=== PATIENT | male | born 1980 | race Caucasian/White ===

== ENCOUNTER 2019-03-07 22:40 | Inpatient (IN) | payer MEDICARE, OTHER ==
[2019-03-08] MEDS ORDERED: HEPARIN SODIUM,PORCINE 5,000 UNIT/ML 1 ML VIAL IV PRN (02:50)
[2019-03-08] MEDS ORDERED: HEPARIN SODIUM,PORCINE 10,000 UNIT/ML 1 ML VIAL IV ONE (02:50)
[2019-03-08] MEDS ORDERED: HEPARIN SODIUM,PORCINE 5,000 UNIT/ML 1 ML VIAL IV STA ×2 (02:50→11:10)
[2019-03-08 06:52] VITALS: RESP 20
[2019-03-08 07:46] LABS: Anisocytosis Slight; Basophils # (A) 0.1 k/uL (0-0.2); Basophils % (A) 1 %; Eosinophils # (A) 0.2 k/uL (0-0.7); Eosinophils % (A) 2 %; HCT 29.1 % (39.0-53.0); HGB 8.3 gm/dL (13.0-17.5); Hypochromasia Marked; Lymphocytes # (A) 1.2 k/uL (1.0-4.8); Lymphocytes % (A) 10 %; MCH 18.8 pg (25.0-35.0); MCHC 28.3 g/dL (31.0-37.0); MCV 66.4 fL (80.0-100.0); Mean Platelet Volume 6.2; Microcytosis Marked; Monocytes # (A) 0.6 k/uL (0-1.0); Monocytes % (A) 6 %; Neutrophils # (A) 9.2 k/uL (1.3-7.7); Neutrophils % (A) 80 %; Platelet Count 722 k/uL (150-450); RBC 4.39 m/uL (4.30-5.90); RDW 17.9 % (11.5-15.5); WBC 11.5 k/uL (3.8-10.6)
[2019-03-08 07:48] LABS: Anisocytosis Slight; Basophils % (A) 0 %; Eosinophils # (A) 0.2 k/uL (0-0.7); Eosinophils % (A) 2 %; HCT 24.4 % (39.0-53.0); HGB 7.1 gm/dL (13.0-17.5); Hypochromasia Marked; Lymphocytes # (A) 1.1 k/uL (1.0-4.8); Lymphocytes % (A) 12 %; MCH 19.9 pg (25.0-35.0); MCHC 28.9 g/dL (31.0-37.0); MCV 68.9 fL (80.0-100.0); Mean Platelet Volume 6.6; Microcytosis Marked; Monocytes # (A) 0.6 k/uL (0-1.0); Monocytes % (A) 6 %; Neutrophils # (A) 7.1 k/uL (1.3-7.7); Neutrophils % (A) 77 %; Platelet Count 614 k/uL (150-450); Poikilocytosis Slight; RBC 3.55 m/uL (4.30-5.90); RDW 17.3 % (11.5-15.5); WBC 9.2 k/uL (3.8-10.6)
[2019-03-08 07:55] LABS: ALT 15 U/L (21-72); AST 23 U/L (17-59); Albumin 2.9 g/dL (3.5-5.0); Alkaline Phosphatase 288 U/L (38-126); Anion Gap 7 mmol/L; Blood Urea Nitrogen 12 mg/dL (9-20); Calcium 8.8 mg/dL (8.4-10.2); Carbon Dioxide 27 mmol/L (22-30); Chloride 99 mmol/L (98-107); Glucose 107 mg/dL (74-99); Potassium 4.4 mmol/L (3.5-5.1); Sodium 133 mmol/L (137-145); Total Bilirubin 0.3 mg/dL (0.2-1.3); Total Protein 7.3 g/dL (6.3-8.2)
[2019-03-08 07:55] LABS: INR 1.2 (<1.2); Partial Thromboplastin Time 28.4 sec (22.0-30.0); Prothrombin Time 12.1 sec (9.0-12.0)
[2019-03-08 08:01] LABS: INR 1.1 (<1.2); Partial Thromboplastin Time 28.4 sec (22.0-30.0); Prothrombin Time 11.8 sec (9.0-12.0)
[2019-03-08] MEDS: HEPARIN SOD,PORK IN 0.45% NACL 25,000 UNIT in 0.45% NACL 1 250ML.BAG IV SCH ×2 (08:07→11:05)
[2019-03-08 09:24] VITALS: BMI 23.8
[2019-03-08] MEDS: HYDROcodone/APAP 10-325MG 1 EACH TAB PO SCH ×2 (10:05→15:55)
--- NOTE | 2019-03-08 12:17 | US ---
EXAM: US Duplex Right Lower Extremity Veins CLINICAL HISTORY: Right leg swelling x 1 week. TECHNIQUE: Real-time duplex ultrasound scan of the right lower extremity veins integrating B-mode two-dimensional vascular structure, Doppler spectral analysis, color flow Doppler imaging and compression. COMPARISON: None FINDINGS: Deep veins: Occlusive thrombus in the right common femoral vein and femoral vein. Superficial veins: Unremarkable. No thrombus in the visualized great saphenous vein. Soft tissues: Soft tissue edema. No popliteal cyst. IMPRESSION: Occlusive thrombus in the right common femoral vein and femoral vein. <MYCVCSECTION> Critical Value Communications 03/08/19 01:31 Call Doctor Regarding Acute DVT, called DARLIN Arias on 03/08 01:30 (-04:00)
--- NOTE | 2019-03-08 12:17 | CT ---
EXAM: CT Angiography Chest With Intravenous Contrast CLINICAL HISTORY: Patient presents with SOB. Rule out PE. 75mL of isovue 370 given through IV. DLP 327 TECHNIQUE: Axial computed tomographic angiography images of the chest with intravenous contrast using pulmonary embolism protocol. CTDI is 7 mGy and DLP is 327 mGy-cm. This CT exam was performed using one or more of the following dose reduction techniques: automated exposure control, adjustment of the mA and/or kV according to patient size, and/or use of iterative reconstruction technique. MIP reconstructed images were created and reviewed. COMPARISON: No relevant prior studies available. FINDINGS: Pulmonary arteries: No filling defects. Aorta: No thoracic aortic aneurysm. Lungs: No mass. No consolidation. Pleural space: No significant effusion. No pneumothorax. Heart: No cardiomegaly or pericardial effusion. Bones/joints: No acute fracture or dislocation. Soft tissues: Mildly enlarged thyroid glands. Lymph nodes: No enlarged lymph nodes. IMPRESSION: No acute intrathoracic findings. No pulmonary embolism. Mildly enlarged thyroid glands with no definite nodules.
[2019-03-08 12:24] VITALS: BP 100/50; PULSE 74; TEMP 97.1
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
--- NOTE | 2019-03-08 14:15 | P.DS ---
Providers Date of admission: 03/08/19 03:20 Attending physician: Juan Cortes Primary care physician: Wood Schultz Hospital Course: As mentioned in HPI Plan - Discharge Summary Discharge Rx Participant: No New Discharge Prescriptions: New Apixaban [Eliquis Starter Pack (for VTE)] 5 mg PO DIRECTED 30 Days #1 pack No Action HYDROcodone/APAP 10-325MG [[place] 10-325] 1 tab PO Q6H Discharge Medication List Apixaban [Eliquis Starter Pack (for VTE)] 5 mg PO DIRECTED 30 Days #1 pack 03/08/19 [Rx] HYDROcodone/APAP 10-325MG [[place] 10-325] 1 tab PO Q6H 03/08/19 [History] Follow up Appointment(s)/Referral(s): Wood Schultz MD [Primary Care Provider] - 1 Week [facility] Visiting Nurse, [NON-STAFF] - 1-2 Days Discharge Disposition: HOME SELF-CARE
== END 2019-03-08 17:00 | disposition home health service (06) | DRG 299 ==
LOC: EC 22:40 → 3NMEDONC 03-08 03:20
PROVIDERS: ADMIT Hospitalist; ATTEND Hospitalist
DX: I82.411 Acute embolism and thrombosis of right femoral vein (principal); L89.104 Pressure ulcer of unspecified part of back, stage 4; L89.624 Pressure ulcer of left heel, stage 4; G82.50 Quadriplegia, unspecified; E87.1 Hypo-osmolality and hyponatremia; I82.431 Acute embolism and thrombosis of right popliteal vein; N31.9 Neuromuscular dysfunction of bladder, unspecified; E86.1 Hypovolemia; F17.200 Nicotine dependence, unspecified, uncomplicated; T14.8XXS Other injury of unspecified body region, sequela; M54.5 Low back pain; G89.29 Other chronic pain; D72.829 Elevated white blood cell count, unspecified; Z74.01 Bed confinement status; Z99.3 Dependence on wheelchair; Z87.09 Personal history of other diseases of the respiratory system; Z86.14 Personal history of Methicillin resistant Staphylococcus aureus infection; Z91.013 Allergy to seafood; Z82.5 Family history of asthma and other chronic lower respiratory diseases; Z82.3 Family history of stroke
CPT/HCPCS: 71275; 80053; 85025; 85610; 85730; 96365; 96366; 99284

== ENCOUNTER → 2020-04-17 | Outpatient (CLI) | payer MEDICARE, OTHER ==
--- NOTE | 2020-04-18 08:51 | XR ---
EXAMINATION TYPE: XR foot complete LT DATE OF EXAM: 04/17/2020 COMPARISON: NONE HISTORY: Diffuse soft tissue swelling TECHNIQUE: Three views are submitted. FINDINGS: The osseous structures are intact. There is no acute fracture or dislocation. Diffuse osteopenia a nd arthropathy of the first MTP, PIP and DIP joints. No destructive changes. Calcaneal spur noted. IMPRESSION: 1. Diffuse severe soft tissue edema correlate for cellulitis. No destructive changes identified. 2. Sclerosis involving the posterior margin of the calcaneus adjacent to what appears to be soft tiss ue wound can be associated with chronic osteomyelitis.
--- NOTE | 2020-04-18 08:52 | XR ---
EXAMINATION TYPE: XR tibia fibula RT DATE OF EXAM: 04/17/2020 COMPARISON: NONE HISTORY: Swelling and pain TECHNIQUE: Two views are submitted. FINDINGS: The osseous structures are intact. Arthropathy noted. Diffuse osteopenia. There is cortical thickenin g. No destructive changes. IMPRESSION: 1. Soft tissue edema with cortical thickening along the periosteum posteriorly the tibia and fibula. This could be on the basis of chronic venous stasis. No destructive changes to suggest intraosseous l esion or osteomyelitis.
--- NOTE | 2020-04-18 09:05 | XR ---
EXAMINATION TYPE: XR Hip Bilateral Complete DATE OF EXAM: 04/17/2020 COMPARISON: NONE HISTORY: Swelling TECHNIQUE: 2 views submitted of each hip FINDINGS: There is marked deformity of the femoral heads and acetabula with the multiple bony fragments seen. T here is total resorption of the right femoral head with dislocation of the femur. There is also dislo cation of the left proximal femur relative to the acetabulum with proximal migration. Soft tissue vishal ma noted. Correlate for previous surgery. Portions of the acetabulum are absent a soft tissue defect is seen and there are soft tissue ossifications. No new destructive changes are seen. There is sclero sis involving the medial margin of the left iliac bone. IMPRESSION: 1. Persistent marked deformities of the pelvis and femur with suspected postsurgical resection of the pubic rami, acetabulum and portions of the femur bilaterally. There does appear to be sclerosis invo lving the medial margin of the left iliac bone which can be associated with chronic osteomyelitis.
--- NOTE | 2020-04-18 09:06 | XR ---
EXAMINATION TYPE: XR pelvis AP view DATE OF EXAM: 04/17/2020 COMPARISON: NONE HISTORY: Swelling There is marked deformity of the femoral heads and acetabula with the multiple bony fragments seen. T here is total resorption of the right femoral head with dislocation of the femur. There is also dislo cation of the left proximal femur relative to the acetabulum with proximal migration. Soft tissue vishal ma noted. Correlate for previous surgery. Portions of the acetabulum are absent a soft tissue defect is seen and there are soft tissue ossifications. No new destructive changes are seen. There is sclero sis involving the medial margin of the left iliac bone. Soft tissue calcifications noted. IMPRESSION: 1. Suspected surgical resection of portions of the iliac bone, pubic rami and femur bilaterally with soft tissue ossifications. 2. There is interval increased sclerosis involving the medial margin of the remaining portion of the iliac bone on the left. Could be associated with chronic osteomyelitis..
== END | disposition home or self-care (01) ==
LOC: RADXRMAIN 17:14
PROVIDERS: ATTEND Family Medicine
DX: M21.951 Unspecified acquired deformity of right thigh (principal); M89.36 Hypertrophy of bone, tibia and fibula; M89.361 Hypertrophy of bone, right tibia; M25.872 Other specified joint disorders, left ankle and foot; M89.8X8 Other specified disorders of bone, other site
CPT/HCPCS: 72170; 73521

== ENCOUNTER → 2020-05-10 | Outpatient (CLI) | payer MEDICARE, OTHER ==
[2020-05-10 14:02] LABS: Anisocytosis Slight; Basophils # (A) 0.1 k/uL (0-0.2); Basophils % (A) 1 %; Eosinophils # (A) 0.2 k/uL (0-0.7); Eosinophils % (A) 3 %; HCT 31.6 % (39.0-53.0); HGB 9.6 gm/dL (13.0-17.5); Hypochromasia Marked; Lymphocytes # (A) 1.3 k/uL (1.0-4.8); Lymphocytes % (A) 16 %; MCH 21.1 pg (25.0-35.0); MCHC 30.3 g/dL (31.0-37.0); MCV 69.5 fL (80.0-100.0); Mean Platelet Volume 6.3; Microcytosis Marked; Monocytes # (A) 0.3 k/uL (0-1.0); Monocytes % (A) 5 %; Neutrophils # (A) 5.6 k/uL (1.3-7.7); Neutrophils % (A) 73 %; Platelet Count 554 k/uL (150-450); RBC 4.55 m/uL (4.30-5.90); RDW 18.3 % (11.5-15.5); WBC 7.6 k/uL (3.8-10.6)
[2020-05-10 21:04] LABS: African American GFR (CKD) 159.3 (60.0-200.0); Anion Gap 7.7 mmol/L (4.00-12.00); C Reactive Protein 12.7 mg/dL (0.0-0.8); Calcium 8.9 mg/dL (8.7-10.3); Carbon Dioxide 25.3 mmol/L (21.6-31.8); Non-African American GFR(CKD) 137.5 (60.0-200.0); Potassium 4.6 mmol/L (3.5-5.5)
[2020-05-11 00:42] LABS: Erythrocyte Sedimentation Rate 91 mm/Hr (0-15)
== END | disposition home or self-care (01) ==
LOC: LABWHC1 12:45
PROVIDERS: ATTEND Family Medicine
DX: L89.214 Pressure ulcer of right hip, stage 4 (principal)
CPT/HCPCS: 36415; 80048; 85025; 85652; 86140

== ENCOUNTER → 2020-05-23 | Outpatient (CLI) | payer MEDICARE, OTHER ==
--- NOTE | 2020-05-23 15:27 | MR ---
MR pelvis with and without contrast history: Pressure ulcer sacral region Multiplanar multisequence and postcontrast images obtained through the pelvis following 7.[address] IV Correlation to plain film 04/17/2020 There are extensive bilateral enlarged nodes throughout the iliac, bilateral groin regions. There is marked distortion of the normal anatomy, disarticulation is noted at the bilateral hips, there is ass ociated soft tissue defect at the level of the right iliac bone which is been either resected or part ially resorbed, there is no acetabular component remaining, proximal right femur shows distortion due to partial resection or resorption, air density between the expected proximal femur and acetabulum m ay obscure detail. Similarly lateral dislocation of the left hip is noted with marked distortion of t he proximal left femur and distortion of the acetabulum. Abnormal thickening of the soft tissues pres ent about the right iliac bone, there is abnormal increased signal on T2-weighted sequences within th e gluteal regions, right iliac S, iliopsoas muscle. Bone marrow edema is present within the right sac rum, right iliac bone, increased signal on inversion recovery and T2-weighted sequences. T1 sequences show intermediate and low signal. There is enhancement following contrast administration. Abnormal thickening of the urinary bladder. Distal sacrum is absent, abnormal signal present within s acrum, intermediate signal on T1, increased signal on T2-weighted sequences, open is present overlyin g, there is abnormal skin thickening consistent with cellulitis. There is an ostomy in the left lower quadrant. Leong catheter is in place with suprapubic placement. IMPRESSION: Marked deformity of the normal anatomy as described. Findings are consistent with osteomy elitis likely myositis. Extensive adenopathy.
== END | disposition home or self-care (01) ==
LOC: RADMRIMAIN 11:21
PROVIDERS: ATTEND Family Medicine
DX: L89.623 Pressure ulcer of left heel, stage 3 (principal); Z93.3 Colostomy status; L89.503 Pressure ulcer of unspecified ankle, stage 3; L89.223 Pressure ulcer of left hip, stage 3; L89.153 Pressure ulcer of sacral region, stage 3; L89.214 Pressure ulcer of right hip, stage 4; G82.21 Paraplegia, complete; Z87.828 Personal history of other (healed) physical injury and trauma; Z93.6 Other artificial openings of urinary tract status
CPT/HCPCS: 72197; A9585

== ENCOUNTER → 2020-07-10 | Outpatient (CLI) | payer MEDICARE, OTHER ==
[2020-07-10 15:33] LABS: Anisocytosis Slight; Basophils # (A) 0.1 k/uL (0-0.2); Basophils % (A) 1 %; Eosinophils # (A) 0.3 k/uL (0-0.7); Eosinophils % (A) 3 %; HGB 11.1 gm/dL (13.0-17.5); Hypochromasia Marked; Lymphocytes # (A) 1.1 k/uL (1.0-4.8); Lymphocytes % (A) 10 %; MCH 21.1 pg (25.0-35.0); MCHC 29.9 g/dL (31.0-37.0); MCV 70.5 fL (80.0-100.0); Mean Platelet Volume 6.5; Microcytosis Marked; Monocytes # (A) 0.6 k/uL (0-1.0); Monocytes % (A) 5 %; Neutrophils # (A) 8.9 k/uL (1.3-7.7); Neutrophils % (A) 80 %; Platelet Count 524 k/uL (150-450); RBC 5.24 m/uL (4.30-5.90); WBC 11.1 k/uL (3.8-10.6)
[2020-07-11 00:32] LABS: Erythrocyte Sedimentation Rate 73 mm/Hr (0-15)
[2020-07-11 01:49] LABS: African American GFR (CKD) 174.6 (60.0-200.0); Albumin 3.9 g/dL (3.80-4.90); Albumin/Globulin Ratio 1.05 (1.60-3.17); Anion Gap 8.6 mmol/L (4.00-12.00); BUN/Creat Ratio 32.5 Ratio (12.00-20.00); C Reactive Protein 9.5 mg/dL (0.0-0.8); Calcium 9.1 mg/dL (8.7-10.3); Carbon Dioxide 23.4 mmol/L (21.6-31.8); Globulin 3.7 g/dL (1.6-3.3); Non-African American GFR(CKD) 150.7 (60.0-200.0); Potassium 4.5 mmol/L (3.5-5.5); Total Bilirubin 0.3 mg/dL (0.3-1.2); Total Protein 7.6 g/dL (6.2-8.2)
== END | disposition home or self-care (01) ==
LOC: LABWHC1 14:46
PROVIDERS: ATTEND Family Medicine
DX: L89.214 Pressure ulcer of right hip, stage 4 (principal)
CPT/HCPCS: 36415; 80053; 85025; 85652; 86140

== ENCOUNTER → 2020-07-25 | Outpatient (CLI) | payer MEDICARE, OTHER ==
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
--- NOTE | 2020-08-02 12:23 | P.ARTDOP ---
Arterial Doppler LOWER EXTREMITY ARTERIAL DOPPLER: DATE OF SERVICE: 06/25/2020 Reason for study: Right calf ulcer. Doppler waveforms: Multiphasic bilaterally throughout. Pulse volume recording: []. Pressure gradients: None. Ankle-brachial indices: Greater than 1 bilaterally. Toe brachial indices: 0.79 on the right, 0.92 on the left Impression: Normal study.
== END | disposition home or self-care (01) ==
LOC: RADUSWWP 10:00
PROVIDERS: ATTEND Family Medicine
DX: L89.623 Pressure ulcer of left heel, stage 3 (principal); M86.551 Other chronic hematogenous osteomyelitis, right femur; L89.503 Pressure ulcer of unspecified ankle, stage 3; L89.223 Pressure ulcer of left hip, stage 3; L89.153 Pressure ulcer of sacral region, stage 3; L89.214 Pressure ulcer of right hip, stage 4; G82.21 Paraplegia, complete; M46.28 Osteomyelitis of vertebra, sacral and sacrococcygeal region; Z93.6 Other artificial openings of urinary tract status; Z93.3 Colostomy status; Z87.828 Personal history of other (healed) physical injury and trauma
CPT/HCPCS: 93922; 93970

== ENCOUNTER → 2020-07-30 | Outpatient (CLI) | payer MEDICARE, OTHER ==
[2020-07-30 13:19] LABS: Anisocytosis Slight; Basophils # (A) 0.1 k/uL (0-0.2); Basophils % (A) 1 %; Eosinophils # (A) 0.3 k/uL (0-0.7); Eosinophils % (A) 3 %; HCT 37.6 % (39.0-53.0); HGB 11.5 gm/dL (13.0-17.5); Hypochromasia Marked; Lymphocytes # (A) 1.2 k/uL (1.0-4.8); Lymphocytes % (A) 13 %; MCH 22.6 pg (25.0-35.0); MCHC 30.6 g/dL (31.0-37.0); Mean Platelet Volume 6.7; Microcytosis Moderate; Monocytes # (A) 0.4 k/uL (0-1.0); Monocytes % (A) 5 %; Neutrophils # (A) 7.2 k/uL (1.3-7.7); Neutrophils % (A) 78 %; Platelet Count 547 k/uL (150-450); RBC 5.08 m/uL (4.30-5.90); RDW 19.1 % (11.5-15.5); WBC 9.2 k/uL (3.8-10.6)
[2020-07-30 21:21] LABS: African American GFR (CKD) 174.6 (60.0-200.0); Albumin 3.7 g/dL (3.80-4.90); Albumin/Globulin Ratio 0.97 (1.60-3.17); Anion Gap 6.4 mmol/L (4.00-12.00); BUN/Creat Ratio 32.5 Ratio (12.00-20.00); C Reactive Protein 9.2 mg/dL (0.0-0.8); Calcium 9.1 mg/dL (8.7-10.3); Carbon Dioxide 27.6 mmol/L (21.6-31.8); Globulin 3.8 g/dL (1.6-3.3); Non-African American GFR(CKD) 150.7 (60.0-200.0); Potassium 4.5 mmol/L (3.5-5.5); Total Bilirubin 0.3 mg/dL (0.3-1.2); Total Protein 7.5 g/dL (6.2-8.2)
[2020-07-31 02:27] LABS: Erythrocyte Sedimentation Rate 45 mm/Hr (0-15)
== END | disposition home or self-care (01) ==
LOC: LABWHC1 11:59
PROVIDERS: ATTEND Family Medicine
DX: L89.623 Pressure ulcer of left heel, stage 3 (principal); Z93.3 Colostomy status; L89.503 Pressure ulcer of unspecified ankle, stage 3; L89.223 Pressure ulcer of left hip, stage 3; L89.153 Pressure ulcer of sacral region, stage 3; L89.214 Pressure ulcer of right hip, stage 4; G82.21 Paraplegia, complete; Z87.828 Personal history of other (healed) physical injury and trauma; Z93.6 Other artificial openings of urinary tract status; M86.9 Osteomyelitis, unspecified; M46.28 Osteomyelitis of vertebra, sacral and sacrococcygeal region; M86.551 Other chronic hematogenous osteomyelitis, right femur
CPT/HCPCS: 36415; 80053; 84134; 85025; 85652; 86140

== ENCOUNTER → 2020-12-27 | Outpatient (CLI) | payer MEDICARE, OTHER ==
--- NOTE | 2020-12-27 21:14 | MR ---
MR pelvis with and without contrast HISTORY: L 89.44 Multiplanar multisequence and postcontrast images obtained through the pelvis following 7.[address] IV Correlation to prior MR pelvis 05/23/2020 Marked distortion of the anatomy is again seen. There is no normal articulation of either hip, resorp tion of the proximal femurs is present, air signal is present due to the marked deformity within the pelvis, there is no normal acetabula bilaterally. Marked distortion of the soft tissues is also prese nt. Bilateral inguinal adenopathy is again noted, there is a suprapubic tube in place within the blad hortensia which is contracted, abnormal low signal present at T1 weighted sequences within the right ilium, increased signal in inversion recovery T2-weighted sequences within the right ilium and sacrum. Ther e is a truncated appearance of the sacrum as on prior exam. There is extensive enhancement of the sof t tissues about the right ilium and right sacrum at the ala level. Enhancement of the right ilium and sacral ala is also noted. Large open wound is present posterior to the sacrum similar to prior exam. Enhancement is present of the iliacus muscle bilaterally similar to prior exam. IMPRESSION: Findings compatible with osteomyelitis, - this. Adenopathy is again noted within the pelv is and inguinal regions.
== END ==
LOC: RADMRIMAIN 15:23
PROVIDERS: ATTEND Physician Assistant
DX: R59.1 Generalized enlarged lymph nodes (principal)
CPT/HCPCS: 72197; A9585